=== PATIENT | male | born 1965 | race Caucasian/White ===

== ENCOUNTER → 2017-09-06 | Outpatient (CLI) | payer OTHER ==
[~2017-09-06] MED LIST: DICLOFENAC 50MG50 MG PO; FLEXERIL10 MG PO; LAMISIL250 MG PO; NOMEDS
--- NOTE | 2017-09-06 13:08 | RADIOLOGY REPORT PS360 ---
History and Indications: Hypertension, hyperlipidemia, family history, chest pain and fatigue. Procedure: Patient exercised on Ramy protocol 6 minutes, resting heart rate was 61 bpm, resting blood pressure 153/88, with exercise maximum heart rate achieved was 1 51 bpm which is equal to 89% of the maximum predicted heart rate and a blood pressure was 214/76. Test was started due to shortness of breath, patient denied any complained of chest pain. Patient has adequate exercise capacity achieved 7 mets of workload on treadmill, the blood pressure response to exercise was hypertensive. Electrocardiogram: Resting electrocardiogram showed sinus rhythm, inferolateral ST-T changes. Ischemia versus strain pattern. With exercise there is less than 1.[address] segment depression noted from the baseline EKG. The EKG portion of the exercise Myoview is nondiagnostic secondary to baseline abnormal EKG. Cardiac stress and resting SPECT images: Cardiac stress and rest SPECT images were obtained using technetium 99 Myoview 10.8 mCi at rest and 32.0 mCi at stress, gated SPECT further analysis of segmental wall motion and calculation of the ejection fraction also done. Cardiac stress and rest SPECT images show a mild fixed defect anteroseptally with normal contractility in the gated SPECT is likely secondary to soft tissue attenuation, no reversible ischemia seen. Computer derived ejection fraction is 57% with no obvious regional wall motion abnormality. Right ventricle is normal size and contractility. Conclusion: 1. The EKG portion of the exercise Myoview is nondiagnostic secondary to baseline abnormal EKG, patient has adequate exercise capacity achieved 7mets of workload on treadmill, the blood pressure response to exercise was hypertensive. Test was stopped due to shortness of breath patient denied any complained of chest pain. 2. No obvious scintigraphic evidence of reversible ischemia seen, computer derived ejection fraction is 57% with no obvious regional wall motion abnormality, right ventricle is normal size and contractility.
== END ==
LOC: RAD 06:21
DX: I25.10 Atherosclerotic heart disease of native coronary artery without angina pectoris (principal); I10 Essential (primary) hypertension; E78.5 Hyperlipidemia, unspecified; Z72.0 Tobacco use; I20.8 Other forms of angina pectoris
CPT/HCPCS: A9502

== ENCOUNTER 2017-10-28 11:39 | Emergency (ER) | payer OTHER ==
[~2017-10-28] VITALS: Ht 177.8 cm; Wt 75.8 kg
--- OUTSIDE RECORDS SUMMARY | 2017-10-28 11:46 | External Medical Summary Rpt | CCD ---
Author Author , MARTHA Organization MARTHA Address Unknown Phone [email or web address] Immunization Name Date Rout CVX Reac Dose Comm Prov Is Faci e tion ent ider Refu lity Give sed n Infl 10-1 Intr 150 0.5 Hist KHAF No RITE uenz 7-20 amus mL oric GABINO AID0 a 17 cula al AYMA 3938 Quad r Info N Inj rmat ion - Sour ce Unsp ecif ied
--- OUTSIDE RECORDS SUMMARY | 2017-10-28 11:46 | External Medical Summary Rpt | CCD ---
Author Author , MARTHA THOMAS Address Unknown Phone [email or web address] Support Name Relationship Address Phone LARISA, Next Of Kin [address] [phone] [place] [address] Purpose Continuity of Care Document - 10-18-2013 through 2016 Problems Code Diagnosis DOS Provider Status R07.9 CHEST PAIN, UNSPECIFIED Allergies, Adverse Reactions, Alerts Type Drug Allergy Adverse Reaction to Substance Substance Reaction Severity No Known Drug Unknown Unknown Allergies Vital Signs 10-18-2013 17:34 Name Value Interpretat Reference Comment ion Range BP 94 mm[Hg] Diastolic BP Systolic 177 mm[Hg] Heart 61 /min Rate/Pulse O2% 97 % Respiratory 20 /min Rate Encounters Encounter Start End Date Code Location Performer Type Date Emergency DEZ ORELLANA MD (ER) 3 17:27 3 17:35 [facility]
--- OUTSIDE RECORDS SUMMARY | 2017-10-28 11:46 | External Medical Summary Rpt | CCD ---
Author Author , MARTHA Organization MARTHA Address Unknown Phone [email or web address] Immunization Name Date Rout CVX Reac Dose Comm Prov Is Faci e tion ent ider Refu lity Give sed n Infl 10-1 Intr 150 0.5 Hist KHAF No RITE uenz 7-20 amus mL oric GABINO AID0 a 17 cula al AYMA 3938 Quad r Info N Inj rmat ion - Sour ce Unsp ecif ied
--- OUTSIDE RECORDS SUMMARY | 2017-10-28 11:46 | External Medical Summary Rpt | CCD ---
Author Author [employer] Organization [employer] Address Unknown Phone Unavailable Purpose Continuity of Care Document - through 2016
--- OUTSIDE RECORDS SUMMARY | 2017-10-28 11:46 | External Medical Summary Rpt ---
Author Author MARTHA Rios, MARTHA Rios Organization [employer] Address Unknown Phone Unavailable
--- OUTSIDE RECORDS SUMMARY | 2017-10-28 11:46 | External Medical Summary Rpt | CCD ---
Author Author , MARTHA THOMAS Address Unknown Phone [email or web address] Support Name Relationship Address Phone LARISA, Next Of Kin [address] [phone] [place] [address] Purpose Continuity of Care Document - 10-18-2013 [...] ORELLANA MD (ER) 3 17:27 3 17:35 [facility]
[2017-10-28] MEDS ORDERED: LISINOPRIL 10MG10 MG PO (11:52)
[2017-10-28] MEDS ORDERED: PLAVIX 75MG TAB75 MG PO (11:53)
[2017-10-28] MEDS ORDERED: LIPITOR40 MG PO (11:53)
[2017-10-28] MEDS ORDERED: ASPIRIN 81MG TA81 MG PO (11:53)
--- NOTE | 2017-10-28 12:51 | Urgent Treatment Center Report ---
History of Present Issue Date/Time Seen by Provider 10/28/17 1236 Visit Reason Pt arrived:Walked Presenting Problem:PT STATES HE LIFTED A ALLET AT WORK TODAY AND TWISTED INJURYING HIS RT ELBOW. Location if Accident:Work Onset of symptoms date/time:10/28/17/ or onset unknown for:MEDICAL HX UNKNOWN Have you (or family members/close friends) recently traveled outside the [place]? N If Yes, where/when: Have you had exposure to infectious disease within the past month? TB? Other? Specify: Patient state that he was at work when he reached and grabbed a pallet to move and twisted his right elbow area State that he has been having pain and tenderness ever since State that he has pain when he moves the elbow and when he tries to grab something ALLERGIES Coded Allergies: No Known Allergies (05/29/16) Home Medications Reported Medications LISINOPRIL (Lisinopril) 10 MG PO DAILY ASPIRIN (Aspirin) 81 MG PO DAILY CLOPIDOGREL BISULFATE (PLAVIX) 75 MG PO DAILY Atorvastatin Calcium (Atorvastatin) 40 MG PO DAILY History Medical History General CAD? No Angina: No DE: No Hypertension? No Hyperlipidemia? No CHF? No COPD? No Asthma? No Anemia? No Hernia? No Thyroid Problems? No Hypothyroidism? No CVA? No Seizures? No Diabetes? No UTI? No Stones? No GB Disease: No Nephritic Syndrome? No Asplenia? No Hepatitis? No Sickle Cell Disease? No Arthritis? No Cataracts? No Glaucoma? No MRSA? No TB? No Cancer? No Immunization HX DT/Tetanus 1-4 YRS Pneumonia Refuses Surgical Hx Previous Surgery?Y Oral Surgery Heart Cath Family History Family HX Diabetes No Hypertension Yes Hyperlipidemia Yes Cancer No TB No Social History Smoking Hx Smoker: Former Smoker Tobacco: No Packs/day 1 1/2 - 2 Packs Alcohol Alcohol: No Review of Systems All Other Systems Reviewed and Negative Physical Exam Vital Signs Vital Signs Date Time Temp Pulse Resp B/P Pulse O2 O2 Flow FiO2 Ox Delivery Rate 10/28 1150 97.9 78 20 147/96 98 General Appearance normal appearance, WD/WN, no apparent distress Respiratory Status Yes: trachea midline, chest symmetrical, non tender chest. No: respiratory distress. Lung Sounds bilateral: normal breath sounds, lungs clear. Cardiovascular normal exam, regular rate/rhythm, no peripheral edema Extremities Pain and mild swelling in right elbow area after twisting it lifting pallet at work, state that pain worse when he tries to grab and squeeze Neurologic alert, normal exam, oriented x 3 Medical Decision Making LABS/Meds/Orders Pt receiving controlled substance in ED? No Results/Orders Orders Procedure Date/time Status ELBOW-RT-3 VIEWS 10/28 1154 Active XRAY/CT/US XRAY/CT/US XRAY elbow XR interpretation by reviewed by me Xray Results no fracture seen Comment Will consult with Radiologist and if any different reading observed will call patient and advise Departure Departure Time of Disposition 131 Disposition DC Home or Self Care(routine) Clinical Impression Primary Impression: Elbow sprain Qualifiers: Encounter type: initial encounter Laterality: right Qualified Code: S53.401A - Unspecified sprain of right elbow, initial encounter Condition STABLE Referrals Reina SELLERS,Jose Guadalupe CORREIA MD, [facility] Patient Instructions How To Perform RICE (Rest, Ice, Compress, Elevate) Additional Instructions *RICE, Rest the extremity, Ice 15-20 minutes 3-4 times daily, Compress- wear the pb wrap as discussed as much as possible to help reduce swelling and pain, Elevate the extremity when at rest *Pb wrap is for support and help control swelling, use it except in the shower. Be sure that is not to tight but not to loose either *Elevate when resting *Ibuprofen 600-800mg every 6-8 hours as needed for pain an inflammation. If need something more can take Tylenol in between doses of Ibuprofen to help Immediately follow up for new or worsening of symptoms, or no noticeable improvement over the next 3-5 days Over the counter Motrin or Tylenol as needed for pain Follow up with Orthopedics if no improvement Discharge Counseling Counseled pt/family regarding diagnosis, medications/RX, home care, follow up needs at 131
--- NOTE | 2017-10-28 13:24 | RADIOLOGY REPORT PS360 ---
ELBOW-RT-3 VIEWS HISTORY: Pain following injury INJURY AT WORK ORDERING PHYSICIAN: RENARD GAYTAN APRN PATIENT AGE: 51 years COMPARISON: None FINDINGS: BONY STRUCTURES: No fracture or dislocation. No lytic or blastic change. Normal mineralization. SOFT TISSUES: Unremarkable. No radio opaque foreign bodies. No displaced fat pad. JOINT SPACE: Well-preserved. No significant arthritic changes evident. IMPRESSION: Negative elbow.
[2017-10-28 13:36] VITALS: BP 140/87
== END 2017-10-28 13:37 | disposition home or self-care (01) ==
LOC: UTC 11:39
DX: S53.401A Unspecified sprain of right elbow, initial encounter (principal); I10 Essential (primary) hypertension; Z87.891 Personal history of nicotine dependence; X50.1XXA Overexertion from prolonged static or awkward postures, initial encounter; Y92.63 Factory as the place of occurrence of the external cause; Y99.0 Civilian activity done for income or pay